=== PATIENT | female | born 1965 | race Caucasian/White ===

== ENCOUNTER → 2017-10-03 | Outpatient (CLI) | payer OTHER ==
[~2017-10-03] MED LIST: BIRTH CONTROL; CETI5; HYDACE5 PO; META800 PO; MULVITA; NAPR550 PO
== END ==
LOC: LAB SHORT 10:30 → LAB 10:30
DX: R10.9 Unspecified abdominal pain (principal)
CPT/HCPCS: 87086

== ENCOUNTER → 2018-10-08 | Outpatient (CLI) | payer OTHER ==
[2018-10-10 15:06] LABS: HPV 16 Negative (Negative); HPV 18 Negative (Negative); HPV OTHER HR TYPES Negative (Negative)
== END | disposition home or self-care (01) ==
LOC: LAB SHORT 11:42 → LAB 11:42
PROVIDERS: Nurse Practitioner Obstetrics & Gynecology
DX: Z01.419 Encounter for gynecological examination (general) (routine) without abnormal findings (principal)
CPT/HCPCS: 87624; G0123

== ENCOUNTER → 2018-11-28 | Outpatient (CLI) | payer OTHER | END | disposition home or self-care (01) | LOC: PLD 12:41 → LAB SHORT 12:41 | DX: N84.1 Polyp of cervix uteri (principal) | CPT/HCPCS: 88305 ==

== ENCOUNTER 2020-07-26 10:18 | Day surgery (SDC) | payer OTHER ==
[~2020-07-26] VITALS: Ht 170.2 cm; Wt 120.6 kg
[~2020-07-26 10:18] MED LIST changes: +AMOX500 PO; +CALCIUM MAGNES1 EACH PO; +DIPH50 PO; +FERROUS SULFAT325 M3 PO; +KRILL OIL500 MG PO; +LORA10ER PO; +METO25ER PO; +PRAMIPEXOLE D0.25 M1 PO; +TURMERIC500 M2 PO; +VITAMIN D310 MC4 PO
--- NOTE | 2020-07-26 11:44 | NUR ---
07/26/20 1144 Darrian Santiago History, Chart, Medications and Allergies reviewed before start of procedure.MONITOR INTACT WITH CONTINUOUS PULSE OXIMETRY AND INTERMITTENT BP.3-LEAD EKG REVIEWED WITH PHYSICIAN PRIOR TO START OF PROCEDURE.O2 VIA N/C INTACT THROUGHOUT SEDATION/PROCEDURE. See Anesthesia record.
--- NOTE | 2020-07-26 13:14 | NUR ---
IV SITES X2 REMOVED. BOTH WNL. Patient up to Ambulate independently. Gait steady. Discharge instructions reviewed with patient. Patient verbalizes understanding. Copy given to patient to take home. Discharged via wheelchair to private car for ride home WITH
== END 2020-07-26 13:14 | disposition home or self-care (01) ==
LOC: ORSCMMR 10:18 → ORD 11:45 → ORSCMMR 11:45
PROVIDERS: Surgery
PROC: 0DBP8ZX Excision of Rectum, Via Natural or Artificial Opening Endoscopic, Diagnostic (ICD-10-PCS; principal; 2020-07-26 11:45)
PROC: 0DBM8ZX Excision of Descending Colon, Via Natural or Artificial Opening Endoscopic, Diagnostic (ICD-10-PCS; principal; 2020-07-26 11:45)
DX: Z12.11 Encounter for screening for malignant neoplasm of colon (principal); Z86.718 Personal history of other venous thrombosis and embolism; I10 Essential (primary) hypertension; Z79.899 Other long term (current) drug therapy; D12.4 Benign neoplasm of descending colon; K62.1 Rectal polyp
CPT/HCPCS: 88305; J2704; J7120

== ENCOUNTER → 2024-03-02 | Outpatient (CLI) | payer OTHER ==
[2024-03-12 08:24] LABS: HPV HIGH RISK BY TMA Not Detected; HPV SOURCE Cervical
== END ==
LOC: LAB SHORT 13:43 → LAB 13:43
PROVIDERS: Obstetrics & Gynecology
DX: Z01.419 Encounter for gynecological examination (general) (routine) without abnormal findings (principal)
CPT/HCPCS: 87624; G0123